=== PATIENT | female | born 1950 | race Two or more races ===

== ENCOUNTER 2018-06-26 15:12 | Inpatient (IN) | payer MEDICARE, OTHER ==
[~2018-06-26] VITALS: Ht 157.5 cm; Wt 91.6 kg
[2018-06-26] MEDS ORDERED: ATENOLOL (15:32)
[2018-06-26] MEDS ORDERED: LOSARTAN (15:32)
[2018-06-26] MEDS ORDERED: PRAVASTATIN (15:32)
[2018-06-26] MEDS ORDERED: HYZAAR (15:32)
[2018-06-26 15:46] LABS: BASOPHILS % (AUTO) 0.7 % (0.0-2.0); EOSINOPHILS % (AUTO) 0.5 % (0.0-7.0); HEMATOCRIT 36.1 % (31.2-41.9); HEMOGLOBIN 12.5 g/dL (10.9-14.3); LYMPHOCYTES # (AUTO) 1.1 K/uL (20.0-40.0); LYMPHOCYTES % (AUTO) 18.1 % (20.5-51.5); MEAN CORPUSCULAR HEMOGLOBIN 28.9 uug (24.7-32.8); MEAN CORPUSCULAR HGB CONC 35 g/dL (32.3-35.6); MEAN CORPUSCULAR VOLUME 83.6 fL (75.5-95.3); MONOCYTES # (AUTO) 0.2 K/uL (2.0-10.0); MONOCYTES % (AUTO) 4.1 % (0.0-11.0); NEUTROPHILS # (AUTO) 4.5 K/uL (1.8-8.9); NEUTROPHILS % (AUTO) 76.6 % (38.5-71.5); PLATELET COUNT (AUTO) 263 K/uL (179-408); RED BLOOD CELL COUNT(AUTO) 4.31 MIL/uL (3.63-4.92); WHITE BLOOD COUNT (AUTO) 5.8 K/uL (3.8-11.8)
[2018-06-26 15:56] LABS: CREATININE 0.7 mg/dL (0.6-1.3); POTASSIUM 3.3 mmol/L (3.5-5.1)
[2018-06-26 16:00] LABS: BILIRUBIN,DIRECT 0.1 mg/dL (0.0-0.2); BILIRUBIN,TOTAL 0.3 mg/dL (0.2-1.0); TOTAL PROTEIN, SERUM 7.9 g/dL (6.4-8.2)
--- NOTE | 2018-06-26 16:39 | NUR ---
Pt out of Er for CT.
--- NOTE | 2018-06-26 16:50 | NUR ---
Pt back from ct, resting in beed w/ both eyes closed.
[2018-06-26] MEDS ORDERED: FENTANYL CITRATE 100 MCG/2 ML AMPUL IV ONE ×2 (17:00→18:15)
[2018-06-26] MEDS ORDERED: ONDANSETRON IV *ER 4 MG/2 ML VIAL IV ONE ×2 (17:00→18:15)
--- NOTE | 2018-06-26 17:34 | NUR ---
Dr Cordova spoke to Dr Padmini Delaney pt's Opthemalogist.
[2018-06-26] MEDS ORDERED: FENTANYL CITRATE 100 MCG/2 ML AMPUL ONE (18:06)
[2018-06-26] MEDS ORDERED: ONDANSETRON 4 MG/2 ML VIAL ONE (18:17)
--- NOTE | 2018-06-26 18:47 | NUR ---
67 YEAR OLD FEMALE RECEIVED FROM ER VIA GURNEY FOR N/V IN STABLE CONDITION.CALL LIGHT WITH IN REACH.MD CALLED FOR ADMISSION ORDERS
--- NOTE | 2018-06-26 19:00 | NUR ---
Admitted a 67 years old female with diagnosis of intractable vomiting. Asleep but easily arouse to verbal stimuli. Mainly Vietnamese speaking. at bedside and translated for this nurse. Patient complaining of headache 5/10 at this time. In no acute distress. IV site on left hand intact and patent. NSR on tele at 87/min. Routine admission care done. Plan of care initiated. safety measure initiated and call villalba within reach.
[2018-06-26 19:07] VITALS: BP 144/69
[2018-06-26] MEDS ORDERED: MAGNESIUM HYDROXIDE 30 ML LIQUID UDC PO PRN (19:45)
[2018-06-26] MEDS ORDERED: HYDROCODONE/APAP 5-325MG TABLET PO PRN (19:45)
[2018-06-26] MEDS ORDERED: Z GUARD REMEDY PASTE 57 GM TUBE TOP PRN (19:45)
[2018-06-26] MEDS ORDERED: ACETAMINOPHEN 325 MG TABLET PO PRN (19:45)
--- NOTE | 2018-06-26 19:50 | NUR ---
Seen by Sarina Pack Awaiting for admission orders.
[2018-06-26 20:00] VITALS: BP 137/67
[2018-06-26] MEDS: ONDANSETRON 4 MG/2 ML VIAL IV PRN (20:33)
[2018-06-26] MEDS: MORPHINE SULFATE 2 MG/1 ML DISP.SYRIN IV PRN (20:33)
[2018-06-26] MEDS: IV NS 1000 ML 1,000 ML IV PRN (20:53)
[2018-06-27] VITALS: BP 122/54
[2018-06-27] MEDS: ZOLPIDEM 5 MG TABLET PO PRN ×2 (00:28→20:22)
[2018-06-27] MEDS: MORPHINE SULFATE 2 MG/1 ML DISP.SYRIN IV PRN ×3 (04:30→12:46)
[2018-06-27] MEDS: ONDANSETRON 4 MG/2 ML VIAL IV PRN ×2 (04:32→12:46)
[2018-06-27 05:00] VITALS: BP 133/83
[2018-06-27 06:03] LABS: BASOPHILS % (AUTO) 0.6 % (0.0-2.0); EOSINOPHILS % (AUTO) 0.5 % (0.0-7.0); HEMATOCRIT 33.6 % (31.2-41.9); HEMOGLOBIN 11.6 g/dL (10.9-14.3); LYMPHOCYTES % (AUTO) 15.4 % (20.5-51.5); MEAN CORPUSCULAR HEMOGLOBIN 28.8 uug (24.7-32.8); MEAN CORPUSCULAR HGB CONC 34 g/dL (32.3-35.6); MEAN CORPUSCULAR VOLUME 83.6 fL (75.5-95.3); MONOCYTES # (AUTO) 0.4 K/uL (2.0-10.0); MONOCYTES % (AUTO) 6.5 % (0.0-11.0); NEUTROPHILS # (AUTO) 5.1 K/uL (1.8-8.9); PLATELET COUNT (AUTO) 254 K/uL (179-408); RED BLOOD CELL COUNT(AUTO) 4.02 MIL/uL (3.63-4.92); WHITE BLOOD COUNT (AUTO) 6.7 K/uL (3.8-11.8)
--- NOTE | 2018-06-27 06:04 | NUR ---
Patient AAOX4. Mainly Indonesian speaking. In no acute distress. IV site on left hand intact and patent. IVF infusing. NSR on tele at 88/min. Morphine PRN per order given for complain of severe headache and effective. Safety measure maintained and call villalba within reach.
[2018-06-27 06:11] LABS: CREATININE 0.7 mg/dL (0.6-1.3); PHOSPHOROUS 3.6 mg/dL (2.5-4.9); POTASSIUM 3.2 mmol/L (3.5-5.1)
[2018-06-27 06:20] LABS: THYROID STIMULATING HORMONE 0.89 mIU/mL (0.358-3.740)
--- NOTE | 2018-06-27 07:20 | NUR ---
Received patient in bed, awake, alert and oriented x4, in no acute distress. Denies chest pain or SOB. Still noted with mild headache, denies N/V at this time. IV site on LH intact, running NS at 75cc/hr. NSR on monitor. Will continue to monitor
[2018-06-27] MEDS: PANTOPRAZOLE SODIUM 40 MG VIAL IV SCH (08:46)
--- NOTE | 2018-06-27 10:30 | NUR ---
Shar Ro, BERNABE here to see patient, at bedside. All questions answered.
[2018-06-27] MEDS ORDERED: POTASSIUM CHLORIDE 50 ML IV SCH (11:15)
--- NOTE | 2018-06-27 11:23 | NUR ---
Follow up with home medication dosage, per patient and at bedside, unable to provide list of medication at this time. will bring in medications tomorrow. Pharmacist made aware. Shar Ro NP made aware. Will endorse to night RN for follow up
[2018-06-27 11:50] VITALS: BP 108/56
[2018-06-27] MEDS: IV NS 1000 ML 1,000 ML IV PRN (12:50)
[2018-06-27] MEDS ORDERED: POTASSIUM CHLORIDE 20 MEQ TAB.PRT.SR PO ONE (13:15)
--- NOTE | 2018-06-27 14:30 | NUR ---
Dr. Tabor in the unit to see patient, at bedside, all questions answered
[2018-06-27] MEDS ORDERED: ATEN50TA PO (14:35)
[2018-06-27] MEDS ORDERED: PRAV40TA3 PO (14:36)
[2018-06-27] MEDS ORDERED: LOSA1TAB42 PO (14:36)
[2018-06-27] MEDS ORDERED: CITA20TA19 PO (14:37)
[2018-06-27] MEDS ORDERED: LEVE500T9 PO (14:38)
[2018-06-27] MEDS ORDERED: ERGO500014 PO (14:38)
[2018-06-27] MEDS ORDERED: MELO-105 PO (14:39)
[2018-06-27] MEDS ORDERED: OMEP40CA37 PO (14:40)
[2018-06-27] MEDS ORDERED: AMLO5TAB7 PO (14:41)
[2018-06-27 15:50] VITALS: BP 133/53
--- NOTE | 2018-06-27 17:00 | NUR ---
Kris Pineda NP for Dr. Enamorado here to see patient, at bedside, all questions answered.
[2018-06-27] MEDS: LEVETIRACETAM 500 MG TABLET PO SCH (17:21)
--- NOTE | 2018-06-27 18:25 | NUR ---
End of shift note: patient is alert and oriented x4, in no acute distress. Medicated for pain as needed and was effective. No episode of vomiting noted during this shift. Medicated accordingly. No acute change of condition noted. All needs attended and met. Will continue to monitor
--- NOTE | 2018-06-27 19:50 | NUR ---
Received pt laying in bed, awake. AxO x4. Discussed and reviewed plan of care with pt. Pt cooperative with care. Pt aware of MRI, MRI consent signed and placed in chart. Continuous fluids noted. Pt complains of mild headache at this time. Denies nausea, SOB, or dizziness at this time. No vomiting noted. Pt shows no signs of acute distress. Safety precautions implemented. Bed on low locked position, call light within reach. Will continue to monitor.
[2018-06-27] MEDS ORDERED: BESI5DRO LEFTEYE (19:59)
[2018-06-27 20:00] VITALS: BP 122/49
[2018-06-27] MEDS ORDERED: ATORVASTATIN 10 MG TABLET PO SCH (21:00)
[2018-06-28 05:54] VITALS: BP 127/55
[2018-06-28] MEDS: IV NS 1000 ML 1,000 ML IV PRN (06:17)
[2018-06-28] MEDS: MORPHINE SULFATE 2 MG/1 ML DISP.SYRIN IV PRN ×2 (06:20→12:50)
[2018-06-28 06:24] VITALS: BP 124/43
--- NOTE | 2018-06-28 07:15 | NUR ---
RECEIVED PATIENT IN BED, AWAKE AAOX 4 SURINAMESE SPEAKING, BUT ABLE TO MAKE NEEDS KNOWN. NO ACUTE DISTRESS NOTED AT THIS TIME. IV ACCESS ONRIGHT HAND # 22 INTACT AND PATENT RUNNING NS @ 75 CC/HR. FOR MRI OF THE BRAIN WWO CONTRAST TODAY. NO COMPLAINTS OF PAIN/DISCOMFORT. CALL LIGHT WITHIN REACH. WILL CONTINUE TO MONITOR. CLOSELY.
[2018-06-28] MEDS: PANTOPRAZOLE SODIUM 40 MG VIAL IV SCH (08:53)
[2018-06-28] MEDS: LEVETIRACETAM 500 MG TABLET PO SCH ×2 (08:53→18:18)
[2018-06-28] MEDS ORDERED: Medication Not On Formulary EA (Losartan/Hydrochlorothiazide (Losartan-Hctz 100-12.5 Mg PO SCH (09:00)
[2018-06-28] MEDS ORDERED: AMLODIPINE 5 MG TABLET PO SCH (09:00)
[2018-06-28] MEDS ORDERED: ATENOLOL 50 MG TABLET PO SCH (09:00)
[2018-06-28] MEDS ORDERED: CITALOPRAM 20 MG TABLET PO SCH (09:00)
[2018-06-28] MEDS ORDERED: MELOXICAM 7.5 MG TABLET PO SCH (09:00)
[2018-06-28] MEDS ORDERED: HYDROCHLOROTHIAZIDE 12.5 MG CAPSULE PO SCH (09:00)
[2018-06-28] MEDS ORDERED: LOSARTAN POTASSIUM 50 MG TABLET PO SCH (09:00)
--- NOTE | 2018-06-28 10:10 | NUR ---
PATIENT TAKEN TO [facility] FOR MRI OF BRAIN WWO CONTRAST. IV ACCESS ON RIGHT HAND #22 INTACT AND PATENT. MRI QUESTIONNAIRE AND CONSENT COMPLETED AND SIGNED. REPORT GIVEN TO EMT.
[2018-06-28 11:14] VITALS: BP 115/59
--- NOTE | 2018-06-28 11:55 | NUR ---
PATIENT BACK FROM MRI SCAN, IN STABLE CONDITION. WILL CONTINUE TO MONITOR CLOSELY.
--- NOTE | 2018-06-28 12:00 | NUR ---
RECEIVED ORDER FROM SETH BUCKLEY DNP TO CHANGE DIET TO CARDIAC DIET. ORDERS NOTED AND CARRIED OUT. WILL CONTINUE TO MONITOR CLOSELY.
[2018-06-28] MEDS ORDERED: GADODIAMIDE 5 MMOL/10 ML VIAL ONE (14:26)
[2018-06-28] MEDS ORDERED: GADODIAMIDE 2.5 MMOL/5 ML VIAL ONE (14:26)
[2018-06-28 15:10] VITALS: BP 116/52
--- NOTE | 2018-06-28 18:30 | NUR ---
PATIENT DISCHARGED TO HOME IN STABLE CONDITION. DC PAPERS AND INSTRUCTIONS GIVEN AND EXPLAINED TO PATIENT. BELONGINGS LIST COMPLETED AND SIGNED. IV ACCESS REMOVED. PATIENT LEFT HOSPITAL ACCOMPANIED BY VIA PRIVATE CAR
== END 2018-06-28 18:40 | disposition home or self-care (01) | DRG 918 ==
LOC: ER 15:12 → TELE 18:16 → MED 06-27 19:09
PROVIDERS: ADMIT Hospitalist; ATTEND Hospitalist
DX: T88.59XA Other complications of anesthesia, initial encounter (principal); R51 Headache; E78.5 Hyperlipidemia, unspecified; E66.9 Obesity, unspecified; R42 Dizziness and giddiness; E87.6 Hypokalemia; F41.9 Anxiety disorder, unspecified; I51.7 Cardiomegaly; Y83.8 Other surgical procedures as the cause of abnormal reaction of the patient, or of later complication, without mention of misadventure at the time of the procedure; Y77.8 Miscellaneous ophthalmic devices associated with adverse incidents, not elsewhere classified; I10 Essential (primary) hypertension; Z68.36 Body mass index [BMI] 36.0-36.9, adult; Z98.890 Other specified postprocedural states; Z98.41 Cataract extraction status, right eye; Y92.531 Health care provider office as the place of occurrence of the external cause
CPT/HCPCS: 36415; 70030-TC; 70450; 70553; 71045; 83690; 83735; 84100; 84443; 85025; 85730; 93005; 93307; A4663; C9113; G0378; J2270; J2405; J3010; J7030